=== PATIENT | female | born 1955 | race Caucasian/White ===

== ENCOUNTER → 2018-01-06 | Outpatient (CLI) | payer OTHER ==
[~2018-01-06] MED LIST: AMOX500; ASPI325 PO; CEPH500 PO; CODEIN; COUGH; CRUTCH4 USE; DIPATR PO; DIPH50 PO; HYDACE10B PO; HYDACE5 PO; HYDACE5325 PO; IBUP800 PO; LEVSOD125 PO; LEVSOD175; LEVSOD50 PO; MECL25 PO; META800 PO; MULVITMINE; NAPR500 PO; OSEL75CA PO; OXYACE5T PO; PROM25 PO; RXHYD5325 PO; Zofran Odt4 MG PO
== END ==
LOC: LAB 16:45 → LAB SHORT 16:45
DX: E03.9 Hypothyroidism, unspecified (principal)
CPT/HCPCS: 84443

== ENCOUNTER 2018-07-05 07:12 | Day surgery (SDC) | payer OTHER ==
[2018-07-21] MEDS ORDERED: OMEPRAZOLE MAGN20 MG PO (14:54)
[2018-07-21] MEDS ORDERED: LEVO-T112 MCG PO (14:54)
[2018-07-21] MEDS ORDERED: LOVA40 PO (14:54)
[2018-07-21] MEDS ORDERED: VITAMIN D35000 UNIT PO (14:55)
== END 2018-07-05 22:41 | disposition home or self-care (01) ==
LOC: MOI US 07:12 → MOI MAM 07:30 → MOI US 22:41
DX: D05.11 Intraductal carcinoma in situ of right breast (principal)
CPT/HCPCS: 19083; 77065; 88305; 88341; 88342; 88360; A4648

== ENCOUNTER 2018-07-28 08:20 | Day surgery (SDC) | payer OTHER ==
[~2018-07-28] VITALS: Ht 157.5 cm; Wt 71.1 kg
[~2018-07-28 08:20] MED LIST changes: +LEVO-T112 MCG PO; +LOVA40 PO; +OMEPRAZOLE MAGN20 MG PO; +VITAMIN D35000 UNIT PO
--- NOTE | 2018-07-28 10:34 | NUR ---
07/28/18 1034 Angela Manzanares V PT RESTING IN BED, SIDE RAILS IN PLACE, CALL LIGHT WITHIN REACH, VSS. PTS FAMILY AT BEDSIDE. PT DENIES PAIN, DISCOMFORT, AND QUESTIONS AT TIME.
--- NOTE | 2018-07-28 13:15 | NUR ---
07/28/18 1315 Rani Velazquez. LMA IS IN WITH T-PIECE, O2 AT 15L. SATS ARE 96%.
--- NOTE | 2018-07-28 14:01 | NUR ---
07/28/18 1401 Rani Velazquez PT IS IN THE RECLINER WITH WARM BLANKETS APPLIED. VSS. PT IS NOW ACCOMPANIED BY HER SISTER. PT DENIES NAUSEA. PT STATES "MY BOOB HURTS." BUT IS UNABLE TO RATE PAIN AT THIS TIME. PT HAS A FLACC SCORE OF 2/10. CALL LIGHT IN REACH.
== END 2018-07-28 14:45 | disposition home or self-care (01) ==
LOC: ORSCSDS 08:20
PROVIDERS: Surgery
PROC: 07B50ZX Excision of Right Axillary Lymphatic, Open Approach, Diagnostic (ICD-10-PCS; principal; 2018-07-28 11:00)
PROC: 0HBT0ZZ Excision of Right Breast, Open Approach (ICD-10-PCS; principal; 2018-07-28 11:00)
DX: C50.811 Malignant neoplasm of overlapping sites of right female breast (principal); D36.0 Benign neoplasm of lymph nodes; Z17.0 Estrogen receptor positive status [ER+]; E03.9 Hypothyroidism, unspecified; K21.9 Gastro-esophageal reflux disease without esophagitis; Z79.899 Other long term (current) drug therapy
CPT/HCPCS: 19285; 38792; 76098; 77065; 88307; 88341; 88342; A9520; J0690; J1100; J1885; J2250; J2370; J2405; J2765; J3010; J7120; Q9968

== ENCOUNTER 2019-04-21 08:23 | Day surgery (SDC) | payer OTHER ==
[~2019-04-21] VITALS: Ht 157.5 cm; Wt 69.0 kg
[~2019-04-21 08:23] MED LIST changes: +LETR2.5
== END 2019-04-21 10:31 | disposition home or self-care (01) ==
LOC: ORSCSDS 08:23
PROVIDERS: Surgery
PROC: 0DBM8ZX Excision of Descending Colon, Via Natural or Artificial Opening Endoscopic, Diagnostic (ICD-10-PCS; principal; 2019-04-21 09:45)
DX: Z12.11 Encounter for screening for malignant neoplasm of colon (principal); D12.4 Benign neoplasm of descending colon; E03.9 Hypothyroidism, unspecified; F41.9 Anxiety disorder, unspecified; Z79.899 Other long term (current) drug therapy
CPT/HCPCS: 88305; J2405; J2704; J7120

== ENCOUNTER 2021-01-26 19:36 | Emergency (ER) | payer OTHER ==
[~2021-01-26] VITALS: Ht 157.5 cm; Wt 81.7 kg
[2021-01-26 20:21] LABS: BASOPHILS ABSOLUTE AUTO 0.03 K/mm3 (0.00-0.23); BASOPHILS PERCENT AUTO 1 % (0-2); EOSINOPHILS PERCENT AUTO 0 % (0-6); Hematocrit 39.2 % (33.0-51.0); Hemoglobin 13.2 g/dL (11.5-16.0); IMMATURE GRAN ABSOLUTE AUTO 0.03 K/mm3 (0.00-0.10); IMMATURE GRAN PERCENT AUTO 1 % (0-1); LYMPHOCYTES PERCENT AUTO 12 % (21-46); MONOCYTES ABSOLUTE AUTO 0.76 K/mm3 (0.16-1.47); MONOCYTES PERCENT AUTO 13 % (4-13); Mean Corpuscular HGB 29.9 pg (26.0-34.0); Mean Corpuscular HGB Conc 33.7 g/dL (31.5-36.5); Mean Corpuscular Volume 89 fL (80-100); Mean Platelet Volume 9.8 fL (9.1-12.4); NEUTROPHILS ABSOLUTE AUTO 4.24 K/mm3 (1.96-9.15); NEUTROPHILS PERCENT AUTO 74 % (41-73); Platelet Count 261 K/mm3 (150-400); RDW Coefficient Variation 13.1 % (11.7-14.2); RDW Standard Deviation 43.1 fL (35.1-46.3); Red Blood Cell Count 4.42 M/mm3 (3.80-5.20); White Blood Cell Count 5.76 K/mm3 (4.00-11.30)
[2021-01-26 20:25] LABS: Source, Urine Clean Catch
[2021-01-26 20:32] LABS: Appearance, Urine Clear (Clear); Bilirubin, Urine Neg (Neg); Blood, Urine 1+ (Neg); Color, Urine Yellow (P-Yellow); Glucose Qualitative, Urine Neg (Neg); Ketones, Urine Neg (Neg); Leukocyte Esterase, Urine 2+ (Neg); Nitrite, Urine Neg (Neg); Protein, Urine 1+ (Neg); Specific Gravity, Urine 1.015 (1.003-1.022); Urobilinogen, Urine NORM (Normal); pH, Urine 6.5 (5.0-8.0)
[2021-01-26 20:40] LABS: Alanine Aminotransfer (ALT/SGP 84 U/L (12-78); Alk Phos 123 U/L (50-136); Anion Gap 6 mmol/L (6-16); Aspartate Aminotrans (AST/SGOT 61 U/L (12-37); Bilirubin, Total 0.6 mg/dL (0.1-1.0); Blood Urea Nitrogen 13 mg/dL (8-24); Bun/Creatinine Ratio 19.1 (12.0-20.0); CO2, Blood 22 mmol/L (21-32); Calcium, Blood 9.6 mg/dL (8.5-10.1); Chloride, Blood 110 mmol/L (98-108); Creatinine, Blood 0.68 mg/dL (0.40-1.00); Globulin, Blood 3.9 g/dL (2.2-4.0); Glomerular Filtration Rate >60 (60-); Glucose, Blood 137 mg/dL (70-99); Potassium, Blood 3.8 mmol/L (3.5-5.5); Sodium, Blood 138 mmol/L (136-145); Total Protein, Blood 7.9 g/dL (6.4-8.2)
[2021-01-26 20:46] LABS: Bacteria Few /hpf; Red Blood Cells, Urine 0-2 /hpf (0-2); Squamous Epithelial Cells Few /hpf (Few); White Blood Cells, Urine 0-2 /hpf (0-5)
== END 2021-01-26 22:06 | disposition home or self-care (01) ==
LOC: ER 19:36
PROVIDERS: Physician Assistant
DX: R10.11 Right upper quadrant pain (principal); R11.2 Nausea with vomiting, unspecified; E03.9 Hypothyroidism, unspecified; Z79.899 Other long term (current) drug therapy
CPT/HCPCS: 36415; 76705; 80053; 81001; 83690; 85025; 87086; 99284-25

== ENCOUNTER → 2021-12-10 | Outpatient (CLI) | payer OTHER ==
[2021-12-10 12:46] LABS: Performing Lab CELLNETIX; Test Name FLOW CYTOMETRY
[2021-12-13 11:57] LABS: Result SEE SEPARATE REPORT
== END | disposition home or self-care (01) ==
LOC: PLD 12:36 → LAB SHORT 12:36
PROVIDERS: Otolaryngology
DX: R59.0 Localized enlarged lymph nodes (principal)
CPT/HCPCS: 88173; 88184; 88185

== ENCOUNTER → 2023-06-17 | Outpatient (CLI) | payer OTHER ==
[2023-06-17 10:13] LABS: BASOPHILS ABSOLUTE AUTO 0.01 K/mm3 (0.00-0.23); BASOPHILS PERCENT AUTO 0 % (0-2); EOSINOPHILS PERCENT AUTO 0 % (0-6); Hematocrit 42.1 % (33.0-51.0); Hemoglobin 14.3 g/dL (11.5-16.0); IMMATURE GRAN ABSOLUTE AUTO 0.02 K/mm3 (0.00-0.10); IMMATURE GRAN PERCENT AUTO 0 % (0-1); LYMPHOCYTES PERCENT AUTO 4 % (21-46); MONOCYTES ABSOLUTE AUTO 0.23 K/mm3 (0.16-1.47); MONOCYTES PERCENT AUTO 3 % (4-13); Mean Corpuscular HGB 29.7 pg (26.0-34.0); Mean Corpuscular Volume 87 fL (80-100); Mean Platelet Volume 9.3 fL (9.1-12.4); NEUTROPHILS ABSOLUTE AUTO 8.49 K/mm3 (1.96-9.15); NEUTROPHILS PERCENT AUTO 93 % (41-73); Platelet Count 312 K/mm3 (150-400); RDW Coefficient Variation 13.2 % (11.7-14.2); RDW Standard Deviation 41.7 fL (35.1-46.3); Red Blood Cell Count 4.82 M/mm3 (3.80-5.20); White Blood Cell Count 9.15 K/mm3 (4.00-11.30)
[2023-06-17 10:30] LABS: Albumin, Blood 4.1 g/dL (3.4-5.0); Bilirubin, Total 0.9 mg/dL (0.1-1.0); Bun/Creatinine Ratio 10.8 (12.0-20.0); Calcium, Blood 10.1 mg/dL (8.5-10.1); Creatinine, Blood 1.02 mg/dL (0.40-1.00); Globulin, Blood 4.2 g/dL (2.2-4.0); Potassium, Blood 4.1 mmol/L (3.5-5.5); Total Protein, Blood 8.3 g/dL (6.4-8.2)
== END ==
LOC: LAB 10:08 → LAB SHORT 10:08
PROVIDERS: Family Medicine
DX: E86.0 Dehydration (principal)
CPT/HCPCS: 80053; 85025

== ENCOUNTER 2024-08-16 08:06 | Day surgery (SDC) | payer OTHER ==
[~2024-08-16] VITALS: Ht 157.5 cm; Wt 67.1 kg
[2024-08-16] MEDS ORDERED: Lactated Ringer's 1,000 ML IV ONE ×2 (08:22→09:04)
[2024-08-16] MEDS ORDERED: Lidocaine HCl/Pf 1% 5 ML VIAL ONE ×2 (08:53→08:57)
[2024-08-16] MEDS ORDERED: Lidocaine 2% 5 ML SDV ONE (08:57)
[2024-08-16] MEDS ORDERED: propofoL 60 ML IV ONE (09:08)
[2024-08-16] MEDS ORDERED: Ondansetron HCl 2 MG / ML 2ML Vial ONE (10:42)
[2024-08-16 11:10] VITALS: BP 129/72
== END 2024-08-16 11:13 | disposition home or self-care (01) ==
LOC: ORSCSDS 08:06
PROVIDERS: Surgery
PROC: 0DBK8ZX Excision of Ascending Colon, Via Natural or Artificial Opening Endoscopic, Diagnostic (ICD-10-PCS; principal; 2024-08-16 09:45)
PROC: 0DB78ZX Excision of Stomach, Pylorus, Via Natural or Artificial Opening Endoscopic, Diagnostic (ICD-10-PCS; principal; 2024-08-16 09:45)
PROC: 0DB48ZX Excision of Esophagogastric Junction, Via Natural or Artificial Opening Endoscopic, Diagnostic (ICD-10-PCS; principal; 2024-08-16 09:45)
DX: R10.11 Right upper quadrant pain (principal); K21.9 Gastro-esophageal reflux disease without esophagitis; K51.40 Inflammatory polyps of colon without complications; K57.30 Diverticulosis of large intestine without perforation or abscess without bleeding; Z85.3 Personal history of malignant neoplasm of breast; Z80.0 Family history of malignant neoplasm of digestive organs; K76.0 Fatty (change of) liver, not elsewhere classified; E03.9 Hypothyroidism, unspecified; Z79.899 Other long term (current) drug therapy
CPT/HCPCS: 88305; 88342; J2003; J2405; J2704; J7120

== ENCOUNTER 2024-12-01 06:15 | Day surgery (SDC) | payer OTHER ==
[~2024-12-01] VITALS: Ht 157.5 cm; Wt 67.1 kg
[2024-12-01] MEDS ORDERED: Lactated Ringer's 1,000 ML IV ONE ×2 (06:51→10:08)
[2024-12-01] MEDS ORDERED: propofoL 20 ML IV ONE (06:57)
[2024-12-01] MEDS ORDERED: Metoclopramide HCl 5MG / ML 2ML Vial IV ONE (06:58)
[2024-12-01] MEDS ORDERED: Ondansetron HCl 2 MG / ML 2ML Vial IV ONE (06:58)
[2024-12-01] MEDS ORDERED: Acetaminophen 500 MG Tab ONE (07:17)
[2024-12-01] MEDS ORDERED: FentaNYL Citrate 50 MCG/ML 2 ML Injection IV ONE (07:21)
[2024-12-01] MEDS ORDERED: CeFAZolin Sodium 2,000 MG VIAL ONE (07:26)
[2024-12-01] MEDS ORDERED: Rocuronium Bromide 10 MG/ML 5ML Injection IV ONE (07:45)
[2024-12-01] MEDS ORDERED: Bupivacaine 0.5% HCl 5 MG/ML 30MLVIAL INJ ONE (08:06)
[2024-12-01] MEDS ORDERED: Sugammadex Sodium 200 MG/2ML SDV (100 MG/ML) IV ONE (08:42)
--- NOTE | 2024-12-01 09:18 | NUR ---
12/01/24 0918 Hanna Browning RECEIVED REPORT FROM MARK AND RN. INCISION SITES CDI. ABDOMEN SOFT. PT DROWSY ,AROUSABLE TO VERBAL STIMULI. FOLLOWS COMMANDS AND ANSWERS QUESTIONS. PT DENIES PAIN OR NAUSEA AT THIS TIME
--- NOTE | 2024-12-01 09:25 | NUR ---
12/01/24 0925 Hanna Browning SURGEON AT BEDSIDE TALKING TO PATIENT
[2024-12-01] MEDS ORDERED: Ondansetron HCl 2 MG / ML 2ML Vial ONE (09:40)
[2024-12-01] MEDS ORDERED: FentaNYL Citrate 50 MCG/ML 2 ML Injection ONE (09:59)
[2024-12-01 10:22] VITALS: BP 165/60
== END 2024-12-01 10:45 | disposition home or self-care (01) ==
LOC: ORSCSDS 06:15 → ORD 12-14 07:30
PROVIDERS: Surgery
PROC: BF031ZZ Plain Radiography of Gallbladder and Bile Ducts using Low Osmolar Contrast (ICD-10-PCS; principal; 2024-12-01 08:30)
PROC: 0FT44ZZ Resection of Gallbladder, Percutaneous Endoscopic Approach (ICD-10-PCS; principal; 2024-12-01 08:30)
DX: K80.10 Calculus of gallbladder with chronic cholecystitis without obstruction (principal); K82.8 Other specified diseases of gallbladder; R10.11 Right upper quadrant pain; E03.9 Hypothyroidism, unspecified; Z79.899 Other long term (current) drug therapy; Z85.3 Personal history of malignant neoplasm of breast
CPT/HCPCS: 74300; 88304; A9270; J0690; J2405; J2704; J2765; J3010; J7120